=== PATIENT | male | born 1995 | race Caucasian/White ===

== ENCOUNTER 2016-11-17 10:34 | Emergency (ER) | payer OTHER ==
[~2016-11-17] VITALS: Ht 182.9 cm; Wt 85.6 kg
[2016-11-17 10:45] VITALS: TEMP 36.7; Ht 182.9 cm; Wt 85.6 kg
[2016-11-17] MEDS ORDERED: XYLOCAINE 1%/SOD BICARB 20 ML VIAL INFIL STA (10:58)
[2016-11-17] MEDS ORDERED: OXYCODONE/ACETAMINOPHEN 5-325 TAB PO STA (10:58)
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
--- NOTE | 2016-11-17 12:38 | EMERGENCY ROOM VISIT NOTE ---
ED Visit Note EMERGENCY DEPARTMENT PROCEDURE NOTE: I was asked by Dr. Victor to evaluate and repair the facial wounds of this 20- year-old white male patient. Please refer to their dictation for the complete history, physical exam, and ED course. EMERGENCY DEPARTMENT COURSE: The patient has an abrasion noted on the right forehead, and on the left side of the nose, these were cleansed thoroughly with saline and chlorhexidine. There was no repairable laceration there. The patient has a 2.57 year laceration on the right upper lip that does not involve the vermilion border. The wound was prepped with chlorhexidine and draped with sterile towels. The wound was anesthetized with 1% plain buffered lidocaine. The wound was irrigated copiously using normal saline solution and direct pressure irrigation. The wound was repaired using 8, 6-0 nylon sutures. Bacitracin was applied to abrasions and the suture line. The patient does have a vertical, 1.5 and the laceration on the inner aspect of the right upper lip. The laceration is not through and through. Options were reviewed with the patient with regards to the laceration on the inner aspect of his lip, and he prefers to have this here by secondary intention, and forego a suture at this site.
[2016-11-17 12:40] VITALS: BP 128/68; PULSE 67; O2SAT 98
[2016-11-17] MEDS ORDERED: BACI500O11 TOP (12:42)
== END 2016-11-17 12:58 | disposition home or self-care (01) ==
LOC: C.EDB 10:38
DX: S01.511A Laceration without foreign body of lip, initial encounter (principal); V18.0XXA Pedal cycle driver injured in noncollision transport accident in nontraffic accident, initial encounter; Y92.480 Sidewalk as the place of occurrence of the external cause; Y93.55 Activity, bike riding; S02.2XXA Fracture of nasal bones, initial encounter for closed fracture; S00.83XA Contusion of other part of head, initial encounter; S00.81XA Abrasion of other part of head, initial encounter; S00.31XA Abrasion of nose, initial encounter

== ENCOUNTER 2016-11-24 15:13 | Emergency (ER) | payer OTHER ==
[~2016-11-24] VITALS: Ht 182.9 cm; Wt 73.3 kg
[~2016-11-24 15:13] MED LIST: BACI500O11 TOP
[2016-11-24 15:19] VITALS: BP 119/71; PULSE 77; TEMP 36.9; O2SAT 97; Ht 182.9 cm; Wt 73.3 kg
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
== END 2016-11-24 16:09 | disposition home or self-care (01) ==
LOC: C.EDB 15:14 → C.EDD 16:09
DX: S01.511D Laceration without foreign body of lip, subsequent encounter (principal); X58.XXXD Exposure to other specified factors, subsequent encounter